=== PATIENT | female | born 1965 | race Caucasian/White ===

== ENCOUNTER 2020-02-29 17:00 | Emergency (ER) | payer MEDICAID, OTHER ==
[~2020-02-29] VITALS: Ht 162.6 cm; Wt 100.0 kg
[2020-02-29 18:05] VITALS: BP 131/66
[2020-02-29] MEDS ORDERED: NYSTATIN 100,000 UNITS/GM CREAM 15GM TOP SCH (18:15)
== END 2020-02-29 18:15 | disposition home or self-care (01) ==
LOC: ER 17:00
DX: B37.2 Candidiasis of skin and nail (principal); E78.00 Pure hypercholesterolemia, unspecified; Z90.710 Acquired absence of both cervix and uterus
CPT/HCPCS: 93005; 99283

== ENCOUNTER 2020-03-20 18:27 | Emergency (ER) | payer MEDICAID, OTHER ==
[~2020-03-20] VITALS: Ht 165.1 cm; Wt 109.0 kg
[2020-03-20 18:28] VITALS: BP 138/60
== END 2020-03-20 19:05 | disposition home or self-care (01) ==
LOC: ER 18:27
DX: B37.2 Candidiasis of skin and nail (principal); E78.00 Pure hypercholesterolemia, unspecified; Z90.710 Acquired absence of both cervix and uterus
CPT/HCPCS: 99283

== ENCOUNTER 2024-10-05 12:46 | Emergency (ER) | payer MEDICAID ==
[~2024-10-05] VITALS: Ht 170.2 cm; Wt 70.0 kg
[2024-10-05 12:52] VITALS: O2SAT 100
[2024-10-05 12:55] VITALS: BP 111/52; PULSE 100; RESP 16; TEMP 37.2; O2SAT 100
[2024-10-05] MEDS: PREDNISOLONE ACETATE 1% OPHTH DROPS 5ML LEFTEYE SCH (14:35)
== END 2024-10-05 14:36 | disposition home or self-care (01) ==
LOC: ER 12:46
DX: H57.12 Ocular pain, left eye (principal); E11.9 Type 2 diabetes mellitus without complications; I10 Essential (primary) hypertension; E78.00 Pure hypercholesterolemia, unspecified; Z90.710 Acquired absence of both cervix and uterus
CPT/HCPCS: 99283